=== PATIENT | male | born 1960 | race Caucasian/White ===

== ENCOUNTER 2016-07-17 17:08 | Emergency (ER) | payer SELFPAY ==
--- NOTE | 2016-07-17 17:14 | PDOC ---
Hand / Wrist Injury HPI - General Chief Complaint: Upper Extremity Problem/Injury Stated Complaint: LT HAND INJURY Date Seen by Provider: 07/17/16 Time Seen by Provider: 17:13 Source: POSITIVE: Patient Exam Limitations: POSITIVE: No limitations Nurse's Notes Reviewed & Considered: Yes - History of Present Illness Initial Comments: Patient comes in today for evaluation of left hand trauma. Patient was trying to hammer a stake into the ground along the perimeter of his dog plan. He missed the stake and hit the proximal interphalangeal joint of the left third finger. This resulted in a burst laceration over the joint. Patient states his last tetanus update was years ago. Have you received a tetanus shot in the past 10 years?: No Body Location Affected: REPORTS: Upper Extremity (L) Timing: REPORTS: Abrupt Duration: 1/2 hour Severity: Moderate Location at Time of Onset: REPORTS: Home Context: REPORTS: Blow Location of Injury: REPORTS: Left, 3rd Finger Quality: REPORTS: "Pain" Modifying Factors: REPORTS: Movement, Rest Any Prior Injuries Related to Current Complaint?: No - Patient Home Medications Home Medications: Home Medications NK [No Home Medications Reported] 07/17/16 - Patient Allergies Allergies/Adverse Reactions: Allergies Allergy/AdvReac Type Severity Reaction Status Date / Time aspirin AdvReac Mild NOT Verified 07/17/16 17:23 APPLICABLE ROS - Limitations ROS Limitations: No Limitations Constitution: REPORTS: Denies Symptoms Cardiovascular: REPORTS: Denies Cardiac Symptoms Respiratory: REPORTS: Denies Resp Symptoms Neurological: REPORTS: Denies Neuro Symptoms Gastrointestinal: REPORTS: Denies GI Symptoms Endocrine: REPORTS: Denies Symptoms Musculoskeletal: REPORTS: Joint Pain Genitourinary: REPORTS: Denies Symptoms Eyes: REPORTS: Denies Symptoms ENT: REPORTS: Denies Symptoms Skin: REPORTS: Denies Skin Symptoms Lympathic: REPORTS: Denies Lympathic Symptoms Immunologic: POSITIVE: Denies Symptoms Psychiatric: POSITIVE: Denies Psych Symptoms Hand / Wrist Injury Exam - General Appearance General Appearance: POSITIVE: Alert, Cooperative, No Acute Distress - Extremities Upper Extremity: POSITIVE: Normal ROM, Soft Tissue Tenderness, Other (burst laceration of the PIP joint left third finger.) Neurovascular / Tendon: POSITIVE: Sensation Normal, Motor Normal, No Vascular Compromise, Tendon Function Normal Skin: POSITIVE: Warm, Dry - HEENT HEENT: POSITIVE: Head Inspection Nml, Eyes Inspection Nml, Ears Inspection Nml, Nose Inspection Nml, PERRL, EOMI Procedure - Laceration/Wound Repair Site of Lac/Wound:: PIP joint left third finger Wound's Depth, Shape: Into subcutaneous tissue, Stellate, Contused tissue Distal CMS: Yes Skin Prep: Betadine Prep Local Anesthesia Used - Indicate Amt Used in Comment: Lidocaine 1%: Yes Irrigated w/ Saline (mL): 250 Wound Explored: No foreign body removed Wound Debrided: Minimal Wound Repaired With: Sutures single layer Suture Size/Type: 4:0, Ethilon Number of Sutures: 6 Drain Placement: No Sterile Dressing Applied?: Yes Splint Applied?: No Sling Applied?: No Hand / Wrist Injury Progress - Results Reviewed by me Xrays/CTs/US Reviewed by me: Yes Discussed with Radiologist: No - Patient's Progress Pain Medication Addressed: POSITIVE: Patient Refused Re-Examine Time: 17:59 Status: POSITIVE: Improved MDM / ED Course: Patient was examined, x-rays were obtained. His left third finger was soaked in Betadine Tea, then the wound was infiltrated with 1% lidocaine plain in a ring block at the base of his left third finger. This resulted in excellent anesthesia. Skin edge reapproximation was accomplished using 4-0 Ethilon in an interrupted fashion. A total of 6 sutures were placed with good skin edge reapproximation and excellent hemostasis. Patient receives instructions and wound care a prescription for Keflex for 7 days and a prescription for [place]. He is to return in 10 days for suture removal. - Consult Counseled: POSITIVE: Patient, Family, RE: Radiology Results, RE: DX, RE: Need for F/U Patient Care Time - Estimated PCT Patient Care Time (In Minutes): 30 Vital Signs - Recent Vital Signs Vital Signs: Vital Signs (Last 8 hours) Temp Pulse Resp BP Pulse Ox 07/17/16 17:25 97.9 F 78 18 168/87 95 - VS Reviewed Vital Signs Reviewed: Yes Discharge Clinical Impression: Laceration Discharge Disposition: Discharged to Home Condition: Good Patient Instructions Given at Discharge: Laceration (ED)
[2016-07-17] MEDS ORDERED: DIPH,PERTUSS,TET(ADACEL) VAC/PF 0.5 ML (Tdap) IM ONE (17:15)
[2016-07-17] MEDS ORDERED: HYDROcodone-APAP 5 MG -325 MG TABLET PO ONE (17:15)
[2016-07-17 17:41] VITALS: RESP 18; TEMP 97.9
[2016-07-17] MEDS ORDERED: Lidocaine 1% 10 MG/ML - 20 ML VIAL SUBCUT ONE (17:41)
[2016-07-17] MEDS ORDERED: Lidocaine Inj 1% 20 ML ONE (17:43)
[2016-07-17] MEDS ORDERED: BACITRACIN 0.9 GM PACKET OINT TOPICAL ONE (18:02)
--- NOTE | 2016-07-17 18:03 | DI ---
XR FINGERS MIN 2VW,07/17/2016 5:15 PM: Clinical History: Finger injury. Previous Exam: None at this facility. Findings: 3 views of the third digit are obtained, and demonstrate some soft tissue irregularity overlying the middle interphalangeal joint. Alignment remains anatomic and no fractures are seen. Joint spaces are preserved. Impression: Soft tissue irregularity without underlying bony abnormality.
== END 2016-07-17 18:12 | disposition home or self-care (01) ==
LOC: ER 17:08
DX: S61.213A Laceration without foreign body of left middle finger without damage to nail, initial encounter (principal); W27.8XXA Contact with other nonpowered hand tool, initial encounter
CPT/HCPCS: 12002; 73140; 90471; 99281; 99282; J2001